=== PATIENT | female | born 1995 | race Caucasian/White ===

== ENCOUNTER 2017-11-04 17:37 | Emergency (ER) | payer OTHER ==
[~2017-11-04] VITALS: Ht 157.5 cm; Wt 59.0 kg
[~2017-11-04 17:37] MED LIST: ACETAMINOPHEN-1 EAC1 PO; ANAPROX; BACTRIM DS TAB1 EACH PO; CELEXA 10 MG TA10 M1; CHLORASEPTIC177 ML MM; DIFLUCAN150 MG PO; FLEXERIL PO; IBUPROFEN 600600 M1 PO; IBUPROFEN 800800 MG PO; MACROBID 100 M100 M1 PO; NAPROSYN500 MG PO; NOHOMEMEDICATIONS; NORCO 5-325 TA1 EACH PO; PAIN & FEVER325 MG PO; PHENERGAN 25 MG25 M1 PO; ULTRAM 50MG TAB50 MG PO; ZOFRAN4 MG PO; ZPAK PO; [UNRECOGNIZED DRUG - OTHER]
[2017-11-04] MEDS ORDERED: LATUDA20 MG PO (17:49)
[2017-11-04 18:48] LABS: URINE BILIRUBIN NEGATIVE (Negative); URINE BLOOD 3+ (Negative); URINE GLUCOSE-RANDOM* NEGATIVE (Negative); URINE KETONES NEGATIVE (Negative); URINE LEUKOCYTES-REFLEX NEGATIVE (Negative); URINE NITRITE-REFLEX NEGATIVE (Negative); URINE PROTEIN (DIPSTICK) 2+ (Negative); URINE SPECIFIC GRAVITY >= 1.030 (1.005-1.035); URINE UROBILINOGEN 0.2 E.U./dl (0.2-1.0)
[2017-11-04 18:49] LABS: URINE CLARITY TURBID; URINE COLOR RED
[2017-11-04 18:55] LABS: CASTS None Seen /LPF (None Seen); CRYSTALS None Seen /LPF (None Seen); SQUAMOUS 0-3 Few /LPF (0-3); URINE RBC >20 Many /HPF (0-2)
[2017-11-04 19:10] LABS: BACTERIA-REFLEX >30 Many /HPF (None Seen); MUCUS 0-3 Light strn/LPF (None Seen); URINE WBC-REFLEX 6-15 Few /HPF (0-5)
[2017-11-04 19:30] LABS: BASOPHILS 0.4 % (0.0-2.0); EOSINOPHILS 5.3 % (0.0-3.0); HEMATOCRIT 37.9 % (37.0-47.0); HEMOGLOBIN 12.6 gm/dL (12.0-15.0); MCH 26.7 pg (26.0-34.0); MCHC 33.2 g/dL (28.0-37.0); MCV 80.4 fL (80.0-100.0); MONOCYTES 8.9 % (1.0-8.0); PLATELET COUNT 197 thou/uL (150-400); POLYS 67.4 % (36.0-66.0); RBC 4.72 mil/uL (4.20-5.00); RDW 13.9 % (10.5-14.5); WBC 5.9 thou/uL (4.0-11.0)
[2017-11-04 19:36] LABS: CALCIUM 8.8 mg/dL (8.5-10.1); CREATININE 0.9 mg/dL (0.6-1.0); POTASSIUM 3.9 mmol/L (3.5-5.1)
[2017-11-04 19:41] LABS: ALBUMIN 3.2 g/dL (3.4-5.0); TOTAL BILIRUBIN 0.2 mg/dL (<0.1-1.0); TOTAL PROTEIN 6.6 g/dL (6.4-8.2)
[2017-11-04] MEDS ORDERED: MOBIC15 MG PO (20:11)
[2017-11-04] MEDS ORDERED: MACROBID 100 M100 M1 PO (20:11)
[2017-11-04 20:24] VITALS: BP 95/49
[2018-06-14] MEDS ORDERED: REGLAN 5 MG TAB5 MG PO (12:32)
[2018-06-14] MEDS ORDERED: AMOXICILLIN 50500 MG PO (12:32)
[2018-06-14] MEDS ORDERED: NASAL SPRAY30 ML NASAL (12:32)
[2018-06-14] MEDS ORDERED: VENTOLIN HFA 1818 GM INH (12:34)
== END 2017-11-04 20:25 | disposition home or self-care (01) ==
LOC: ER 17:37
PROVIDERS: Physician Assistant
DX: N93.8 Other specified abnormal uterine and vaginal bleeding (principal); N39.0 Urinary tract infection, site not specified; F17.210 Nicotine dependence, cigarettes, uncomplicated

== ENCOUNTER 2018-03-25 10:20 | Emergency (ER) | payer OTHER ==
[~2018-03-25] VITALS: Ht 157.5 cm; Wt 59.0 kg
[~2018-03-25 10:20] MED LIST changes: +LATUDA20 MG PO; +MOBIC15 MG PO
[2018-03-25] MEDS ORDERED: PRENATAL + DHA1 EAC1 PO (10:34)
[2018-03-25 10:37] LABS: URINE BILIRUBIN NEGATIVE (Negative); URINE BLOOD NEGATIVE (Negative); URINE CLARITY CLEAR; URINE COLOR YELLOW; URINE GLUCOSE-RANDOM* NEGATIVE (Negative); URINE KETONES NEGATIVE (Negative); URINE LEUKOCYTES-REFLEX NEGATIVE (Negative); URINE NITRITE-REFLEX NEGATIVE (Negative); URINE PROTEIN (DIPSTICK) NEGATIVE (Negative); URINE UROBILINOGEN 0.2 E.U./dl (0.2-1.0)
[2018-03-25 10:53] LABS: ABSOLUTE NEUTROPHILS 5.8 thou/uL (1.4-8.2); BASOPHILS 0.4 % (0.0-2.0); EOSINOPHILS 3.7 % (0.0-3.0); HEMATOCRIT 38.6 % (37.0-47.0); HEMOGLOBIN 12.8 gm/dL (12.0-15.0); LYMPHOCYTES 18.8 % (24.0-44.0); MCH 26.6 pg (26.0-34.0); MCHC 33.1 g/dL (28.0-37.0); MCV 80.4 fL (80.0-100.0); MONOCYTES 7.8 % (1.0-8.0); PLATELET COUNT 207 thou/uL (150-400); POLYS 69.3 % (36.0-66.0); RDW 14.2 % (10.5-14.5); WBC 8.4 thou/uL (4.0-11.0)
[2018-03-25 11:04] LABS: CALCIUM 8.6 mg/dL (8.5-10.1); CREATININE 0.7 mg/dL (0.6-1.0); POTASSIUM 3.7 mmol/L (3.5-5.1)
[2018-03-25 11:09] LABS: ALBUMIN 3.2 g/dL (3.4-5.0); TOTAL BILIRUBIN 0.2 mg/dL (<0.1-1.0); TOTAL PROTEIN 6.7 g/dL (6.4-8.2)
[2018-03-25] MEDS ORDERED: REGLAN 10 MG TA10 MG PO (12:26)
[2018-03-26 14:08] LABS: NEISSERIA GONORRHEA-PCR Negative (Negative)
== END 2018-03-25 12:35 | disposition home or self-care (01) ==
LOC: ER 10:20
PROVIDERS: Physician Assistant
DX: O20.0 Threatened abortion (principal); O21.9 Vomiting of pregnancy, unspecified; Z72.0 Tobacco use; Z71.6 Tobacco abuse counseling; Z3A.08 8 weeks gestation of pregnancy